=== PATIENT | male | born 1960 | race Caucasian/White ===

== ENCOUNTER → 2017-02-08 | Outpatient (CLI) | payer BC ==
--- NOTE | ~2017-02-08 | PUL ---
PATIENT'S NAME: HAY GALLAGHER [facility] AGE: 56 Y [address] ROOM: [place] [id number] LOCATION: [facility] ADMIT DATE: 02/08/2017 Pulmonary DISCHARGE DATE: FAMILY PHYSICIAN: Sobeida Green MD ATTENDING PHYSICIAN: Sobeida Green NAME OF PROCEDURE: Sleep Study PROCEDURE DATE: 02/08/17 TECH: CARMEN Horne TEST #: [facility] [place]# [id number] TECHNICAL PARAMETERS: The patient was studied using International 10/20 measuring system. While the patient was studied, there was continuous monitoring of EEG (8 leads), EOG (2 leads), EKG (3 leads), submental EMG (3 leads), tibial (4 leads), respiratory inductive plethysmography (RIP) for thoracic and abdominal effort, oral and nasal airflow with a thermocouple and pressure transducer, and oximetry. The ski technician also performed visual and auditory observations noting things like body position, patient's status, breath sounds, artifact, snoring level and patient comments. Continuous sound was monitored using a 2-way speaker system and video monitoring was performed using an infrared camera. Review of the entire study was performed epoch by epoch utilizing a single epoch and multiple epoch capability sleep system. MEDICAL HISTORY: The patient is a 56-year-old overweight gentleman with daytime sleepiness and snoring. SLEEP STAGE SUMMARY: The patient was studied for 510 minutes of which he slept 361 minute. He fell asleep in 27 minutes and slept for 71% of the night. Sleep architecture revealed a decline in slow wave and REM sleep. RESPIRATORY SUMMARY: Oxygen saturations ranged from 87-93%. There were 62 apneas and 83 hypopneas for an apnea/hypopnea index moderately elevated at 24 events per hour. The majority of the events occurred too late in the study to allow for initiation of CPAP. EKG SUMMARY: Normal sinus rhythm was noted throughout the study with an average heart rate of 56 beats per minute. LIMB MOVEMENT SUMMARY: Occasional periodic limb movements were noted. Clinical significance is unclear. ASSESSMENT: Moderate obstructive sleep apnea. PATIENT'S NAME: HAY GALLAGHER [facility] AGE: 56 Y [address] ROOM: [place] [id number] LOCATION: [facility] ADMIT DATE: 02/08/2017 Pulmonary DISCHARGE DATE: FAMILY PHYSICIAN: Sobeida Green MD ATTENDING PHYSICIAN: Sobeida Green PLAN: Would consider either a repeat study for initiation and titration of CPAP or auto CPAP at home. The patient will receive results from the ordering provider. MD ALEX CUMMINS/ /[id number] dtt: 02/28/17 0739 , Darius Stephenson. dtd: 02/11/17 1233
== END | disposition disaster alternative care site (69) ==
LOC: GSLP 02-07 21:00
DX: G25.2 Other specified forms of tremor (principal); G47.33 Obstructive sleep apnea (adult) (pediatric); R40.0 Somnolence; R06.83 Snoring